=== PATIENT | female | born 1980 | race Caucasian/White ===

== ENCOUNTER 2023-10-21 14:49 | Emergency (ER) | payer BC, SELFPAY ==
[2023-10-21 14:51] VITALS: BP 140/100; BMI 19.8
[2023-10-21 15:15] LABS: % Basophils 0.5 % (0-2); % Eosinophils 1.3 % (0-6); % Immature Granulocytes 1.3 % (0-0.5); % Lymphocytes 23.9 % (20.5-51.1); % Monocytes 4.4 % (1.7-9.3); % Neutrophils 68.6 % (42.2-75.2); Absolute Eosinophils 0.1 10^3/uL (0-0.7); Absolute Immature Granulocytes 0.1 10^3/uL (0-0.05); Absolute Lymphocytes 2.1 10^3/uL (1.2-3.4); Absolute Monocytes 0.4 10^3/uL (0.1-0.6); Absolute Neutrophils 5.9 10^3/uL (1.4-6.5); Hematocrit 36.4 % (37.0-47.0); Hemoglobin 12.7 g/dL (12.0-16.0); Mean Corp Hgb Conc. 34.9 g/dL (33.0-37.0); Mean Corpuscular Hgb 30.1 pg (27.0-31.0); Mean Corpuscular Volume 86.3 fL (81.0-99.0); Nucleated Red Blood Cells % 0 %; Platelet Count 254 10^3/uL (130-400); Red Blood Cell Count 4.22 10^6/uL (4.20-5.40); Red Cell Dist. Width 12.2 % (11.5-14.5); White Blood Cell Count 8.6 10^3/uL (4.8-10.8)
[2023-10-21 15:23] LABS: Erythrocyte Sed Rate 9 mm/hour (0-20)
[2023-10-21 15:28] LABS: ALT (SGPT) 13 U/L (0-35); AST (SGOT) 22 U/L (14-36); Albumin 4.4 g/dl (3.5-5.0); Alkaline Phosphatase 69 U/L (38-126); Blood Urea Nitrogen 5 mg/dl (7-17); Calcium 9.2 mg/dl (8.4-10.2); Carbon Dioxide 25 mmol/L (22-30); Chloride 103 mmol/L (98-107); Estimated Creatinine Clearance 77 ml/min; Glucose 87 mg/dl (70-99); Potassium 3.9 mmol/L (3.5-5.1); Sodium 137 mmol/L (135-145); Total Bilirubin 2.6 mg/dl (0.2-1.3); Total Protein 7.1 g/dl (6.3-8.2); eGFR > 60.00
[2023-10-21 15:29] LABS: Lipase 74 U/L (23-300)
--- NOTE | 2023-10-21 15:50 | ED.GENMED ---
History of Present Illness
General
Chief Complaint: Abdominal Symptoms
Time Seen by Provider: 10/21/23 15:42
Travel History
Have you had any contact with someone who has COVID-19?: No
Do you have any symptoms of coronavirus? Fever > 100 degrees, chills, cough, shortness of breath, sore throat, loss of taste or smell, muscle aches, or headache?: No
History of Present Illness
History of Present Illness:
Patient is a 43-year-old female with past medical history of Crohn's disease currently on medication with Entyvio, follows with GI, with history of bowel obstructions and colonic resection x 2 with last surgery in 2020, here today for evaluation of
2 to 3 weeks of progressively worsening generalized bloating associated with mild generalized discomfort. No focal pain/discomfort. She has endorsed nausea but denies vomiting. No diarrhea. No black or bloody stools. No fevers. She has been
able to tolerate p.o.
Past History
Past History
ED Past Medical History: Other (Crohn's Anemia, )
ED Past Surgical History: Appendectomy and Bowel resection (X 2)
Social History
Tobacco: Non-smoker
Alcohol: None
Personal:
Living: with family
Review of Systems
Review of Systems
All Other Systems: ROS reviewed and negative except as documented in HPI and ROS
Phy Exam
Physical Exam
Physical Exam:
GENERAL: Alert , in no apparent distress
EYE: pupils equal and reactive
NECK: Supple, no significant adenopathy.
ENT: o/p clr, mmm.
CARDIAC: Regular rate and rhythm .
LUNGS: Clear breath sounds bilaterally, no acute respiratory distress, no wheezes/rales/rhonchi
ABDOMEN: Soft, without focal tenderness, no r/g, no cvat; well healed surgical scar along midline of abdomen from prior colonic resection
NEUROLOGICAL: Alert and oriented, no focal neuro deficits
SKIN: Warm and dry, skin intact.
MUSCULOSKELETAL: No edema, well perfused.
PSYCH: Normal and appropriate interaction.
Course
Orders/Labs/Results
Orders:
Orders
10/21/23 15:06
Complete Blood Count/With Diff Urgent
Comprehensive Metabolic Panel Urgent
HCG, Serum Qualitative Screen Urgent
Lipase Urgent
Sed Rate [Erythrocyte Sed Rate] Urgent
10/21/23 15:49
CT Abd/pel W Iv And Oral Contr Urgent
Comment:
Reason For Exam: abd pain hx of chron's
0.9% Sodium Chloride 1000 ml [Nss] 1,000 ml IV BOLUS
Iohexol [Omnipaque] See Protocol PO NOW STA
Ondansetron Injectable [Zofran] 4 mg IV NOW STA
Test Result ONCE
10/21/23 16:09
Lactic Acid Urgent
10/21/23 16:57
Urinalysis Reflex To Culture Urgent
Date Specimen was Collected: 10/21/23
Time Specimen was Collected: 15:55
Urine Microscopic Reflex Cult Urgent
Abnormal Lab Results
10/21/23 10/21/23 10/21/23
15:06 16:09 16:57
Hct 36.4 L %
(37.0-47.0)
Abs Immat Gran (auto) 0.1 H 10^3/uL
(0-0.05)
Immature Gran % 1.3 H %
(0-0.5)
BUN 5 L mg/dl
(7-17)
Lactic Acid 0.6 L mmol/L
(0.7-2.0)
Total Bilirubin 2.6 H mg/dl
(0.2-1.3)
Urine Ketones 1+ A
(Negative)
Leukocyte Esterase Rfl Trace A
(Negative)
Urine Bacteria (Reflex) Few A
(Negative)
10/21/23 15:06
10/21/23 15:06
Vital Signs
Initial and Last Documented VS:
Initial Vital Signs
Temp Pulse Resp BP Pulse Ox
98.2 F 85 16 140/100 96
10/21/23 14:51 10/21/23 14:51 10/21/23 14:51 10/21/23 14:51 10/21/23 14:51
Last Documented Vital Signs
Temp Pulse Resp BP Pulse Ox
98.2 F 78 18 126/87 98
10/21/23 14:51 10/21/23 20:18 10/21/23 20:18 10/21/23 20:18 10/21/23 20:18
MDM/Problems Addressed
Differential Diagnosis Includes:
Patient is a 43-year-old female with past medical history of Crohn's disease currently on medication with Entyvio, follows with GI, with history of bowel obstructions and colonic resection x 2 with last surgery in 2019, here today for evaluation of
2 to 3 weeks of progressively worsening generalized bloating associated with mild generalized discomfort. Overall, patient appears well. Vital signs remarkable for a mildly elevated blood pressure. Physical examination described above. Will
begin with urine test, urinalysis, and screening labs. Will provide IV fluids with normal saline and Zofran. Will obtain CT scan of the abdomen and pelvis with IV and oral contrast. NPO.
10/21/2023 21:09: Screening labs grossly within normal limits aside from a mildly elevated total bilirubin to 2.6. CT scan of the abdomen and pelvis with IV and oral contrast reveals mild bowel wall thickening of the distal descending and sigmoid
colon consistent with a history of Crohn's colitis. No bowel obstruction. There is also a small left ovarian cyst. Patient made aware of findings. I attempted to discuss case with [facility] and I spoke with on-call physician, Dr. Arjun (~). I was told by this physician that given he is not the patient's GI specialist, he is not able to provide any recommendations at this time. He recommended we contact GI at our hospital. I contacted GI at our hospital and spoke with Dr. Latasha (~). They recommend a steroid taper with prednisone and close follow-up with GI. Patient recommended to contact her GI specialist tomorrow morning and to be reevaluated within the next couple of days. The patient appears very well overall. No
significant discomfort. No vomiting. She is able to tolerate p.o. Patient voiced understanding of the above plan. Recommend PEDIATRIC CLINICAL DIETICIAN follow-up for the incidental ovarian cyst. All questions answered. Stable for discharge
*Critical Care Note
Total Time (30-74mins, 75-104mins- exclusive of procedures): Not Applicable
ED Attending Note
-
Portions of this chart may have been created with voice recognition software.� Occasional wrong word or��sound alike� substitutions may have occurred due to the inherent limitations of voice recognition software.
Discharge Plan
Departure
Patient Disposition: Home (Routine Discharge)
Date of Disposition: 10/21/23
Time of Disposition: 20:55
Patient with high blood pressure during this ER visit?: Yes
Condition: Good
Covid-19: Not Applicable
Discharge Problem:
Abdominal pain, Acute Crohn's disease
Instructions: Crohn disease in adults, Ovarian Cyst ED
Prescriptions:
New
prednisone 10 mg tablet
10 mg PO DIRECTED Qty: 70 0RF
Rx Instructions:
Take 4 tablets days 1-7, take 3 tablets days 8-14, take 2 tablets days 15-21, take 1 tablet days 22-28
No Action
famotidine [Pepcid] 20 mg Tablet
20 mg PO DAILY
loratadine [Claritin] 10 mg Tablet
10 mg PO DAILY PRN (Reason: as needed)
ondansetron 4 mg tablet,disintegrating
4 mg PO TIDPRN PRN (Reason: nausea/vomiting) Qty: 20 0RF
dicyclomine 10 mg capsule
10 mg PO BID Qty: 10 0RF
Referrals:
Kenney Blanton MD [Non-Admitting Privileges] - Follow up in 1 week
Rajat Wilson MD [Family Provider] -
Activity Restrictions/Additional Instructions:
You were seen today for evaluation of abdominal pain.
We performed a CAT scan which reveals the following:
1. � Mild bowel wall thickening of the distal descending and sigmoid colon consistent with the history of Crohn's colitis. No bowel obstruction.
2. � By report the patient has had prior bowel resections, prior appendectomy.
3. � No free air. No free fluid or fluid collection.
4. � Small left ovarian cyst.
We discussed your case with gastroenterology who recommends a steroid taper to take as directed with food or milk.
Please contact your GI specialist and be evaluated within the next 7 to 10 days.
Return for any new, worsening, or concerning symptoms.
Interventions
Interventions:
*Risk Screen - Suicide Last Done: 10/21/23 14:51
*General Assessment Last Done: 10/21/23 16:04
*Neglect/Abuse Screening Last Done: 10/21/23 14:51
ED- Fall Risk Assessment Last Done: 10/21/23 16:04
*ED COVID-19 Vaccine History Last Done: 10/21/23 14:51
CE-Ufglkt-Ccdpldngtw Assessment Last Done: 10/21/23 16:04
Discharge Date and Time
Print Language: [place]THER[place] IRISH
[2023-10-21 16:04] VITALS: BP 118/79
[2023-10-21] MEDS: NSS 1000 IV (16:06)
[2023-10-21] MEDS: OMNIPAQUE 50 ML PO (16:06)
[2023-10-21] MEDS: ZOFRAN 4 MG IV (16:06)
[2023-10-21 16:25] LABS: Lactic Acid 0.6 mmol/L (0.7-2.0)
[2023-10-21 16:56] LABS: HCG, Serum Qualitative Screen Negative
[2023-10-21 17:18] LABS: Urine Albumin Negative (Neg - Trace); Urine Bilirubin Negative (Negative); Urine Character Clear (Clear); Urine Color Yellow; Urine Glucose Negative (Negative); Urine Ketone 1+ (Negative); Urine Leukocyte Trace (Negative); Urine Nitrite Negative (Negative); Urine Occult Blood Negative (Negative); Urine Specific Gravity 1.025 (<1.030); Urine Urobilinogen Negative (Neg - 1+)
[2023-10-21 17:39] LABS: Urine Bacteria Few (Negative); Urine Red Blood Cell 0-2 /HPF (0-2); Urine Squamous Cell 0-2 /LPF (Few)
[2023-10-21 20:18] VITALS: BP 126/87
== END 2023-10-21 21:29 | disposition home or self-care (01) ==
LOC: EMR 14:49
PROVIDERS: Emergency Medicine; Physician Assistant; EMERGENCY PHYSICIAN Emergency Medicine; FAMILY PHYSICIAN Family Medicine
DX: R10.9 Unspecified abdominal pain (principal); K50.10 Crohn's disease of large intestine without complications; R03.0 Elevated blood-pressure reading, without diagnosis of hypertension
CPT/HCPCS: 99285; 96374; 96361; 74177; 80053; 81003; 81015; 83605; 83690; 84703; 85025; 85652; Q9967

== ENCOUNTER → 2024-11-23 09:18 | Outpatient (REF) | payer OTHER, SELFPAY | LOC: MRI 3T 09:18 | PROVIDERS: ATTENDING PHYSICIAN Internal Medicine Gastroenterology; FAMILY PHYSICIAN Family Medicine | DX: K50.019 Crohn's disease of small intestine with unspecified complications (principal); R19.5 Other fecal abnormalities | CPT/HCPCS: 72197; 74183; A9575 ==

== ENCOUNTER 2025-03-29 15:23 | Emergency (ER) | payer OTHER, SELFPAY ==
[2025-03-29 15:25] VITALS: BP 153/89
[2025-03-29 15:46] LABS: Hematocrit 35.8 % (37.0-47.0); Hemoglobin 12.1 g/dL (12.0-16.0); Mean Corp Hgb Conc. 33.8 g/dL (33.0-37.0); Mean Corpuscular Volume 85.6 fL (81.0-99.0); Nucleated Red Blood Cells % 0 %; Platelet Count 262 10^3/uL (130-400); Red Cell Dist. Width 12.5 % (11.5-14.5)
[2025-03-29 16:01] LABS: HCG, Serum Qualitative Screen Negative
[2025-03-29 16:10] LABS: ALT (SGPT) 17 U/L (0-35); AST (SGOT) 24 U/L (14-36); Albumin 4.3 g/dl (3.5-5.0); Alkaline Phosphatase 74 U/L (38-126); Blood Urea Nitrogen 5 mg/dl (7-17); Calcium 9.0 mg/dl (8.4-10.2); Carbon Dioxide 26 mmol/L (22-30); Chloride 106 mmol/L (98-107); Glucose 89 mg/dl (70-99); Lipase 80 U/L (23-300); Potassium 4.3 mmol/L (3.5-5.1); Sodium 136 mmol/L (135-145); Total Protein 6.8 g/dl (6.3-8.2); eGFR > 60.00
--- NOTE | 2025-03-29 16:53 | ED.GENMED ---
History of Present Illness
General
Chief Complaint: Abdominal Pain
Source: patient
Exam Limitations: none
Time Seen by Provider: 03/29/25 16:43
History of Present Illness
History of Present Illness:
See MDM
Past History
Past History
ED Past Medical History: Other (Crohn's Anemia, )
ED Past Surgical History: Appendectomy and Bowel resection (X 2)
Social History
Tobacco: Non-smoker
Alcohol: None
Personal:
Living: with family
Phy Exam
Physical Exam
Physical Exam:
See MDM
Course
Orders/Labs/Results
Orders:
Orders
03/29/25 15:28
Test Result ONCE
03/29/25 15:32
Complete Blood Count/With Diff Urgent
Comprehensive Metabolic Panel Urgent
HCG, Serum Qualitative Screen Urgent
Comment: Notify provider if positive test present
Lipase Urgent
03/29/25 16:52
CT Abd/pel W Iv And Oral Contr Urgent
Comment: Hx Crohns and SBO
Reason For Exam: general abd pain, nausea
0.9% Sodium Chloride 1000 ml [Nss] 1,000 ml IV BOLUS
Iohexol [Omnipaque] See Protocol PO NOW STA
Ondansetron Injectable [Zofran] 4 mg IV NOW STA
03/29/25 18:59
Iohexol [Omnipaque] 50 ml .ROUTE .STK-MED ONE
Abnormal Lab Results
03/29/25
15:32
RBC 4.18 L 10^6/uL
(4.20-5.40)
Hct 35.8 L %
(37.0-47.0)
BUN 5 L mg/dl
(7-17)
Total Bilirubin 2.1 H mg/dl
(0.2-1.3)
03/29/25 15:32
03/29/25 15:32
Vital Signs
Initial and Last Documented VS:
Initial Vital Signs
Temp Pulse Resp BP Pulse Ox
98.7 F 78 16 153/89 98
03/29/25 15:25 03/29/25 15:25 03/29/25 15:25 03/29/25 15:25 03/29/25 15:25
Last Documented Vital Signs
Temp Pulse Resp BP Pulse Ox
98.7 F 74 22 128/83 99
03/29/25 15:25 03/29/25 20:30 03/29/25 20:30 03/29/25 20:01 03/29/25 20:30
MDM/Problems Addressed
Differential Diagnosis Includes:
Note:
CHIEF COMPLAINT(S)
Suspected bowel obstruction with nausea, loss of appetite, bloating, and constipation.
HISTORY OF PRESENT ILLNESS
The patient is a 45-year-old female with a 22-year history of Crohns disease, presenting with concerns of a possible bowel obstruction. She has undergone two previous surgeries related to her Crohns disease. The patients symptoms commenced about a
week ago, characterized by nausea, loss of appetite, bloating, and constipation. She reports minimal passage of gas, which she finds concerning, but notes that she does pass a small amount. The patient describes previous experiences with high-grade
obstructions which required surgical intervention, thus she is proactive in seeking evaluation now. Despite feeling tender, she does not explicitly describe this as pain. She has been receiving an infusion of Vedolizumab (Entyvio) every eight weeks,
which has stabilized her Crohns flares. The patient admits to dehydration due to reduced oral intake, contributing to her current status.
PAST MEDICAL AND SURIGICAL HISTORY
The patient has a history of Crohns disease and has undergone two prior abdominal surgeries.
CHRONIC MEDICAL CONDITIONS SIGNIFICANTLY AFFECTING CARE
Crohns disease diagnosed 22 years ago, managed with Vedolizumab (Entyvio).
ADDITIONAL HISTORY OBTAINED FROM SOURCES OTHER THAN THE PATIENT
According to conversations during care, the patients spouse is involved in her health decisions and previous care experiences.
EXTERNAL RECORDS REVIEWED
The patient mentioned a recent MRI enterography completed in October; records are available for review.
SOCIAL DETERMINANTS AFFECTING HEALTH
The patient expressed concerns about potential stress factors related to disease management, noting apprehension about making health decisions and the implications of such stressors on her wellbeing.
SOCIAL HISTORY
The patient expressed a level of health-related stress, noting some psychological distress related to previous health interventions and decision-making for her Crohn�s disease management.
MEDICATIONS
Vedolizumab (Entyvio) infusion every eight weeks for Crohns disease.
REVIEW OF SYSTEMS
- Gastrointestinal: Reports nausea, bloating, loss of appetite, constipation, and minimal passage of gas. Denies abdominal pain, although tenderness is present.
- General: Feels dehydrated due to decreased oral intake, indicated by dry mucous membranes and subjective report of reduced fluid intake.
PHYSICAL EXAM
General: Alert, no acute distress.
Skin: Warm, dry.
Head: Normocephalic, atraumatic
Neck: Appears supple, trachea midline.
Eyes, Ears, Nose, Mouth, and Throat: Dry mucous membranes
Cardiovascular: No signs of cyanosis
Respiratory: Respirations are non-labored.
Abdomen: Non-distended. Bowel sounds within normal limits. No significant tenderness
Musculoskeletal: No deformities
Neurological: No focal neurological deficit observed.
Psychiatric: Cooperative, appropriate mood and affect.
PROBLEM LIST
Acute Problems:
- Suspected bowel obstruction
- Dehydration
Chronic Problems:
- Crohns disease
PLAN
1. Administer intravenous fluids to address dehydration.
2. Provide antiemetic medications to manage nausea.
3. Perform computed tomography (CT) scan with oral contrast to evaluate for bowel obstruction and other intra-abdominal pathology.
4. Reassessed management plan to address symptoms of dehydration and ensure effective monitoring of current Crohn�s disease management.
DIFFERENTIAL DIAGNOSIS
The Differential Diagnosis includes, in no particular order and is not limited to:
1. Partial bowel obstruction.
2. Functional constipation.
3. Exacerbation of Crohns disease.
4. Adhesions related to prior surgeries.
5. Ileus.
6. Colonic volvulus.
7. Inflammatory bowel disease-related stricture.
8. Gastroenteritis.
9. Ischemic colitis.
10. Small bowel ileus secondary to dehydration.
SUMMARY OF ENCOUNTER
The patient was seen in the emergency department due to concerns about a possible bowel obstruction with symptoms like nausea, loss of appetite, bloating, and constipation. Based on her history of Crohn�s disease and prior surgeries, a CT scan was
performed. The CT scan results did not show any acute pathology; however, a gas bubble near the anastomosis was noted, likely causing her discomfort. After the evaluation and management in the ED, she feels much better.
DISPOSITION
Discharge.
ASSESSMENT
Suspected bowel obstruction resolved with observation in ED and CT imaging showing no acute obstruction. Noted gas bubble at anastomosis site.
PLAN
The patient will follow up with her primary care doctor for further management. She understands the need to return to the emergency department if symptoms worsen.
PATIENT EDUCATION AND COUNSELING
The patient was informed about the findings of the CT scan, and the absence of acute obstruction, which correlates with previous observations of gas bubble near the anastomosis. She was educated on return precautions and advised to follow up with
her primary care doctor.
FOLLOW-UP INSTRUCTIONS
The patient is to follow up with her Primary Care Doctor as previously arranged and understands the return precautions should her symptoms worsen.
MEDICAL DECISION MAKING
- Number and Complexity of Problems Addressed: Chronic conditions affecting care: Crohn�s disease, postoperative status.
- Data:
Category 1: My independent interpretation of CT scan indicates no acute pathology and the presence of a gas bubble near the anastomosis site.
Category 2: Clinical information was obtained from the patients recount of prior similar incidents, confirming the interpretation.
- Risk: Consideration of Admission/Observation: Escalation of care, including admission/observation, was considered given the complexity and risk of the patients presenting complaint, exam findings, and/or underlying comorbidities. However,
ultimately it is felt the patient is safe for outpatient management with close follow-up. Reasoning: Work-up reassuring, does not reveal any acute life/organ threatening processes, patients symptoms well controlled upon reevaluation, reexamination
is reassuring, vitals are stable, patient is agreeable with discharge, reliable for follow-up.
DIAGNOSIS
R10.9 Abdominal pain, unspecified, due to gas bubble near anastomosis.
*Pulse Oximetry
SaO2: 98
Oxygen Mode of Delivery: Room air
Patient hypoxic: no
*Critical Care Note
Total Time (30-74mins, 75-104mins- exclusive of procedures): Not Applicable
ED Attending Note
-
Portions of this chart may have been created with voice recognition software.� Occasional wrong word or��sound alike� substitutions may have occurred due to the inherent limitations of voice recognition software.
Discharge Plan
Departure
Patient Disposition: Home (Routine Discharge)
Date of Disposition: 03/29/25
Time of Disposition: 21:04
Patient with high blood pressure during this ER visit?: No
Discharge Problem:
Abdominal pain
Instructions: Abdominal Pain
Prescriptions:
No Action
famotidine [Pepcid] 20 mg Tablet
20 mg PO DAILY
loratadine [Claritin] 10 mg Tablet
10 mg PO DAILY PRN (Reason: as needed)
ondansetron 4 mg tablet,disintegrating
4 mg PO TIDPRN PRN (Reason: nausea/vomiting) Qty: 20 0RF
dicyclomine 10 mg capsule
10 mg PO BID Qty: 10 0RF
prednisone 10 mg tablet
10 mg PO DIRECTED Qty: 70 0RF
Rx Instructions:
Take 4 tablets days 1-7, take 3 tablets days 8-14, take 2 tablets days 15-21, take 1 tablet days 22-28
Referrals:
Rajat Wilson MD [Family Provider, [facility]]
Activity Restrictions/Additional Instructions:
Please return for any worsening symptoms.
You may return at any time if you have further concerns.
Please follow up with your doctor at the first available appointment, preferably this week.
Thank you for choosing [facility].
Interventions
Interventions:
*Risk Screen - Suicide Last Done: 03/29/25 15:25
*General Assessment Last Done: 03/29/25 17:10
*Neglect/Abuse Screening Last Done: 03/29/25 15:25
*ED- Fall Risk Assessment Last Done: 03/29/25 17:10
*ED COVID-19 Vaccine History Last Done: 03/29/25 17:10
BT-Zfixob-Nceyqdgxif Assessment Last Done: 03/29/25 17:10
Discharge Date and Time
Print Language: SINHAL[place]
[2025-03-29 17:06] VITALS: BP 138/92
[2025-03-29 17:09] VITALS: BMI 20.5
[2025-03-29] MEDS: ZOFRAN 4 MG IV (17:15)
[2025-03-29] MEDS: OMNIPAQUE 50 ML PO (17:17)
[2025-03-29] MEDS: NSS 1000 IV (17:17)
[2025-03-29 18:00] VITALS: BP 135/84
[2025-03-29 19:53] VITALS: BP 124/106
[2025-03-29 20:01] VITALS: BP 128/83
[2025-03-29 21:00] VITALS: BP 127/97
== END 2025-03-29 21:29 | disposition home or self-care (01) ==
LOC: EMR 15:23
PROVIDERS: Emergency Medicine; EMERGENCY PHYSICIAN Student in an Organized Health Care Education/Training Program; FAMILY PHYSICIAN Family Medicine
DX: R10.9 Unspecified abdominal pain (principal); E86.0 Dehydration; K50.90 Crohn's disease, unspecified, without complications; Z90.49 Acquired absence of other specified parts of digestive tract
CPT/HCPCS: 99284; 96374; 96361; 74177; 80053; 83690; 84703; 85025; Q9967